=== PATIENT | female | born 1945 | race Caucasian/White ===

== ENCOUNTER 2017-04-20 02:38 | Emergency (ER) | payer OTHER, BC ==
[~2017-04-20] VITALS: Ht 170.2 cm; Wt 163.0 kg
[~2017-04-20 02:38] MED LIST: ALEVE220 M1 PO; ANTIVERT25 MG PO; ASPIR-LOW81 MG PO; DILANTIN100 MG PO; DIOVAN HCT 11 TABLET PO; DIOVAN HCT 31 TABLE1 PO; DUONEB 2.5-0.5 M3 ML AEROSOL; FLOVENT 11120 INHALA IH; FUROSEMIDE40 MG PO; HYDROCHLOROTHIA25 MG PO; LOSARTAN POTAS100 MG PO; Lasix PO; MEVACOR20 MG PO; Medrol Dosepak PO; OMEPRAZOLE40 M1 PO; PROVENTIL,2.5 MG/0.5 IH; PROZAC20 MG PO; Proventil,Ventolin H IH; TAZTIA XT360 MG PO; VENTOLIN HFA18 GM IH
[2017-04-20 03:27] LABS: BASOPHIL COUNT 0.1 K/uL (0-0.1); EOSINOPHIL (%) 2.9 % (0-5); EOSINOPHIL COUNT 0.3 K/uL (0-0.3); HEMATOCRIT 41.2 % (36.0-46.0); IMMATURE GRANULOCYTE (%) 1.1 % (0.0-0.7); IMMATURE GRANULOCYTE COUNT 0.1 K/uL; INSTRUMENT ABS NEUTROPHIL CT 7.7 K/uL; LYMPHOCYTE COUNT 1.4 K/uL (1.0-2.8); MCH 29.4 PG (29.0-34.0); MCV 91.8 FL (83-99); MEAN PLAT.VOLUME 9.5 uM^3 (9.5-12.4); MONOCYTE (%) 6.1 % (3-12); MONOCYTE COUNT 0.6 K/uL (0-0.8); NEUTROPHIL (%) 75.6 % (45-76); NEUTROPHIL COUNT 7.7 K/uL (1.8-6.4); PLATELET COUNT 219 K/uL (156-360); RBC DIS.WIDTH-CV 15.8 % (11.8-14.6); RBC DIS.WIDTH-SD 53.1 % (39-53); RED BLOOD COUNT 4.49 M/uL (3.80-5.20); WHITE BLOOD COUNT 10.2 K/uL (4.1-10.2)
[2017-04-20] MEDS ORDERED: FLOMAX0.4 MG PO (03:57)
[2017-04-20] MEDS ORDERED: PERCOCET 5/31 TABLET PO (03:57)
[2017-04-20] MEDS ORDERED: ZOFRAN4 MG PO (03:57)
[2017-04-20] MEDS ORDERED: KEFLEX500 MG PO (03:57)
[2017-04-20 04:17] LABS: CHLORIDE 95 mEq/L (99-109); POTASSIUM 3.5 mEq/L (3.7-5.4); SODIUM 140 mEq/L (136-147)
[2017-04-20 04:19] LABS: GLUCOSE 133 mg/dL (70-99)
[2017-04-20 04:21] LABS: ANION GAP 13 MEQ/L (2-14)
[2017-04-20 04:23] LABS: GFR ESTIMATE (CALCULATED) > 59 mL/min/
[2017-04-20 04:24] LABS: UREA NITROGEN (BUN) 19 mg/dL (9-23)
[2017-04-20 04:42] LABS: ADD MIUA? NO; BILIRUBIN NEGATIVE; BLOOD NEGATIVE; COLOR YELLOW ((YELLOW)); GLUCOSE (STRIP) NEGATIVE; KETONES NEGATIVE; LEUKOCYTES NEGATIVE; NITRITE NEGATIVE; PROTEIN (STRIP) NEGATIVE; SPECIFIC GRAVITY 1.017 (1.000-1.030); UCUL ADDED? NO; UROBILINOGEN 0.2 MG/DL (0.2-1.0)
[2017-04-20 05:24] VITALS: BP 107/67
== END 2017-04-20 05:20 | disposition home or self-care (01) ==
LOC: EME → EDBD 02:38 → EME 02:38
PROVIDERS: Emergency Medicine
DX: R10.9 Unspecified abdominal pain (principal); N20.0 Calculus of kidney; F32.9 Major depressive disorder, single episode, unspecified; I10 Essential (primary) hypertension
CPT/HCPCS: 74176; 80048; 81003; 84703; 85025; 87086; 99281; 99285; J1885; J2405; J7030

== ENCOUNTER 2018-04-15 15:27 | Emergency (ER) | payer OTHER, BC ==
[~2018-04-15] VITALS: Ht 160 cm; Wt 142.2 kg
[~2018-04-15 15:27] MED LIST changes: +FLOMAX0.4 MG PO; +KEFLEX500 MG PO; +PERCOCET 5/31 TABLET PO; +ZOFRAN4 MG PO
[2018-04-15 17:09] LABS: BASOPHIL (%) 0.6 % (0-1); BASOPHIL COUNT 0.1 K/uL (0-0.1); EOSINOPHIL (%) 1.3 % (0-5); EOSINOPHIL COUNT 0.1 K/uL (0-0.3); HEMATOCRIT 42.6 % (36.0-46.0); HEMOGLOBIN 13.9 G/DL (11.9-15.5); IMMATURE GRANULOCYTE (%) 0.6 % (0.0-0.7); LYMPHOCYTE (%) 13.4 % (15-42); LYMPHOCYTE COUNT 1.5 K/uL (1.0-2.8); MCH 29.6 PG (29.0-34.0); MCHC 32.6 G/DL (30.0-36.0); MCV 90.6 FL (83-99); MONOCYTE (%) 6.8 % (3-12); MONOCYTE COUNT 0.7 K/uL (0-0.8); NEUTROPHIL (%) 77.3 % (45-76); NEUTROPHIL COUNT 8.4 K/uL (1.8-6.4); PLATELET COUNT 217 K/uL (156-360); RBC DIS.WIDTH-CV 15.9 % (11.8-14.6); WHITE BLOOD COUNT 10.8 K/uL (4.1-10.2)
[2018-04-15 17:20] LABS: ALBUMIN 3.7 g/dL (3.2-4.8)
[2018-04-15 17:21] LABS: CHLORIDE 95 mEq/L (99-109); POTASSIUM 3.3 mEq/L (3.7-5.4); SODIUM 138 mEq/L (136-147)
[2018-04-15 17:23] LABS: GLUCOSE 107 mg/dL (70-99); TOTAL PROTEIN 6.9 g/dL (6.4-8.3)
[2018-04-15 17:25] LABS: TOTAL BILIRUBIN 0.5 mg/dL (0.0-1.0)
[2018-04-15 17:26] LABS: ALKALINE PHOSPHATASE 154 IU/L (3-129)
[2018-04-15 17:27] LABS: CREATININE 0.9 mg/dL (0.6-1.3); GFR ESTIMATE (CALCULATED) > 59 mL/min/
[2018-04-15 17:28] LABS: AST (GOT) 18 IU/L (2-34); UREA NITROGEN (BUN) 19 mg/dL (9-23)
[2018-04-15 17:30] LABS: ALT (GPT) 17 IU/L (3-49); LIPASE 23 U/L (1.0-51.0)
[2018-04-15 17:33] LABS: TROP-I INTERPRETATION NEGATIVE; TROPONIN-I 0.01 ng/mL (0.0-0.30)
[2018-04-15 20:16] VITALS: BP 107/63
== END 2018-04-15 20:25 | disposition home or self-care (01) ==
LOC: EME 15:27
PROVIDERS: Emergency Medicine
DX: I48.91 Unspecified atrial fibrillation (principal); E86.0 Dehydration; E87.6 Hypokalemia; R10.9 Unspecified abdominal pain; R19.7 Diarrhea, unspecified; R06.02 Shortness of breath; R60.0 Localized edema; I10 Essential (primary) hypertension; J45.909 Unspecified asthma, uncomplicated; Z87.442 Personal history of urinary calculi; Z90.49 Acquired absence of other specified parts of digestive tract
CPT/HCPCS: 71046; 80053; 81003; 83690; 83880; 84484; 85025; 93005; 99281; 99285; J7040